=== PATIENT | male | born 1990 | race Hispanic/Latino ===

== ENCOUNTER 2019-11-07 21:19 | Emergency (ER) | payer BC ==
[2019-11-07 23:20] LABS: Basophils % (Auto) 0.3 % (0.0-1.8); Eosinophils # (Auto) 0.1 K/mm3 (0.0-0.4); Eosinophils % (Auto) 1.2 % (0.0-4.3); Hematocrit 43.7 % (35.5-45.6); Hemoglobin 15.3 gm/dl (11.8-15.2); Lymphocytes # (Auto) 2.8 K/mm3 (1.2-5.4); Lymphocytes % (Auto) 26.4 % (13.4-35.0); Mean Corpuscular HGB Conc 35 % (32-34); Mean Corpuscular Volume 87 fl (84-94); Monocytes # (Auto) 0.8 K/mm3 (0.0-0.8); Monocytes % (Auto) 7.6 % (0.0-7.3); Platelet Count 231 K/mm3 (140-440); Red Blood Count 5.03 M/mm3 (3.65-5.03); Red Cell Distribution Width 12.9 % (13.2-15.2)
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
[2019-11-07 23:43] LABS: BUN/Creatinine Ratio 9; Blood Urea Nitrogen 9 mg/dL (9-20); Calcium 9.5 mg/dL (8.4-10.2); Hemolysis Index 16
[2019-11-08] MEDS ORDERED: ZIPRASIDONE MESYLATE 20 MG VIAL IM ONE ×3 (00:07→16:05)
[2019-11-08] MEDS ORDERED: WATER FOR INJ Sterile (PF) 10 ML ONE ×2 (00:09→16:09)
[2019-11-08 02:06] LABS: Mucus,Urine FEW /HPF
[2019-11-08 02:07] LABS: Bilirubin,Urine NEG (Negative); Blood,Urine SM (Negative); Color,Urine Yellow (Yellow); Protein,Urine <15 mg/dL mg/dL (Negative); Urobilinogen,Urine < 2.0 mg/dL (<2.0)
[2019-11-08 02:25] LABS: Amphetamine Screen,Urine PRESUMPTIVE NEGATIVE; Benzodiazepines Screen,Urine PRESUMPTIVE NEGATIVE; Cannabinoid Screen,Urine PRESUMPTIVE NEGATIVE; Cocaine Screen,Urine PRESUMPTIVE NEGATIVE; Methadone Screen,Urine PRESUMPTIVE NEGATIVE; Opiate Screen,Urine PRESUMPTIVE NEGATIVE
[2019-11-08] MEDS ORDERED: LORazepam 2 MG/ML VIAL IM ONE (17:30)
[2019-11-08] MEDS ORDERED: LORazepam 2 MG/ML VIAL ONE (17:34)
[2019-11-08] MEDS ORDERED: ZIPRASIDONE MESYLATE 20 MG VIAL IM PRN (18:20)
[2019-11-09 03:09] VITALS: BP 130/55
== END 2019-11-09 08:10 ==
LOC: ED 21:19 → EEVIPCON 21:19 → ED 11-09 08:10
DX: F22 Delusional disorders (principal); F52.8 Other sexual dysfunction not due to a substance or known physiological condition; F17.210 Nicotine dependence, cigarettes, uncomplicated
CPT/HCPCS: 36415; 80048; 80307; 81001; 82550; 85025; 96372; 99285; J2060; J3486; 80320; G0480